=== PATIENT | female | born 1970 | race African-American/Black ===

== ENCOUNTER 2017-03-29 13:55 | Emergency (ER) | payer SELFPAY ==
[~2017-03-29] VITALS: Ht 156.2 cm; Wt 113.4 kg
--- NOTE | ~2017-03-29 | EKG ---
PATIENT: SOFYA ARAUJO UNIT #: [id number] Ventricular Rate: 75 BPM Atrial Rate: 75 BPM P-R Interval: 150 ms QRS Duration: 84 ms Q-T Interval: 382 ms QTC Calculation(Bezet): 426 ms P [place]: 47 degrees Calculated R [place]: 21 degrees Calculated T [place]: 20 degrees Diagnosis Line: Normal sinus rhythm Diagnosis Line: Normal ECG Diagnosis Line: No previous ECGs available Diagnosis Line: Confirmed by MOHIT RINCON MD ([id number]) on Diagnosis Line: 03/30/2017 12:32:33 AM INTERPRETING MD: MCKENZIE HIRSCH
--- NOTE | ~2017-03-29 | CR63 ---
[facility] A Service of [facility] RADIOLOGY TEXT RESULTS PATIENT: SOFYA ARAUJO LOCATION: [facility] : 68 UNIT #: [id number] AGE: [address]: Mili Santos SEX: F ORDER DR: [id number] [facility]. [place], [place] [address] [id number] MR#: [id number] Acc #: [id number] NAME: SOFYA ARAUJO : 1970 SEX: F STUDY DATE/TIME: 03/29/2017 15:48 UNIT: [facility] ROOM: STUDY DESCRIPTION: CR Chest 2 View Attending Physician: Mili Santos P.A.-C. Ordering Physician: Mili Santos P.A.-C. Primary Care Physician: Tosha Corley M.D. MEDICAL IMAGING REPORT This report is preliminary unless electronic signature is present EXAM PA and lateral chest DATE 03/29/2017 HISTORY Shortness breath with chronic cough for 2 weeks. Asthma. COMPARISON None FINDINGS PA and lateral examination of the chest upright shows a good expansion of the parenchyma with a normal distribution of the pulmonary vascularity. There is no indication of congestion, effusion, infiltrate, tumor, or nodular density. The pleural reflections and diaphragmatic contours are normal. The cardiac silhouette and mediastinal anatomy is within normal limits. IMPRESSION Normal chest. Dictated by... Izabel Santos M.D. THIS IS AN ELECTRONICALLY VERIFIED REPORT Izabel Santos M.D. at 03/31/2017 9:35 PM [facility] TD: 03/29/2017 18:17 JOB #: [id number] [facility] A Service [facility] RADIOLOGY TEXT RESULTS PATIENT: SOFYA ARAUJO LOCATION: [facility] : 68 UNIT #: [id number] AGE: [address]: Mili Santos SEX: F ORDER DR: MEDICAL IMAGING REPORT Page 1 of 1 COPY
[2017-03-29 15:07] LABS: URINE SOURCE CLEAN CATCH
[2017-03-29 15:13] LABS: URINE APPEARANCE CLEAR; URINE BILIRUBIN NEG (NEG); URINE BLOOD TRACE (NEG); URINE COLOR YELLOW; URINE GLUCOSE NEG (NEG); URINE KETONE NEG (NEG); URINE LEUKOCYTE ESTERASE 2+ (NEG); URINE NITRATE NEG (NEG); URINE PROTEIN NEG (NEG); URINE SPECIFIC GRAVITY 1.025 (1.003-1.035)
[2017-03-29 15:16] LABS: CULTURE INDICATED? YES; URINE BACTERIA AUWI 1+ (NEGATIVE); URINE SQUAMOUS EPITHELIAL CELL FEW /[HPF]; UWBCS1 AUWI 50-100 (0-5)
[2017-03-29 15:24] LABS: BASOPHIL% 0.6 % (0-2.5); EOSINOPHIL# 0.1 X10e3 (0-0.7); EOSINOPHIL% 0.7 % (0.0-7.0); HEMATOCRIT 36.3 % (35.0-45.0); HEMOGLOBIN 12.1 gm/dL (12.0-16.0); LYMPHOCYTE# 2.3 X10e3 (1.0-3.5); LYMPHOCYTE% 31.6 % (17.0-45.0); MEAN CELL VOLUME 93.6 FL (83-96); MEAN CORPUSCULAR HEMOGLOBIN 31.2 PG (28-34); MEAN CORPUSCULAR HGB CONC 33.3 g/dL (30-36); MONOCYTE# 0.7 X10e3 (0-1.0); MONOCYTE% 9.5 % (3.0-12.0); NEUTROPHIL# 4.2 X10e3 (1.5-7.1); NEUTROPHIL% 57.6 % (40-75); PLATELET COUNT 254 X10e3 (140-420); RED BLOOD COUNT 3.88 X10e (3.90-5.30); RED CELL DISTRIBUTION WIDTH 14.6 % (11.0-15.5); WHITE BLOOD COUNT 7.3 X10e3 (4.0-10.5)
[2017-03-29 15:28] LABS: DIFF IND NO
[2017-03-29 15:34] LABS: POC - CKMB <1.0 ng/mL (0.0-7.9); POC - TROPONIN <0.05 ng/mL (<=0.05)
[2017-03-29 16:38] LABS: BUN/CREATININE RATIO 16.66; CALCIUM SERUM 8.7 mg/dL (8.4-10.2); CREATININE SERUM 0.9 mg/dL (0.6-1.4); GLOM FILT RATE Estimated 88.3 mL/min (>60); POTASSIUM 4.2 mmol/L (3.5-5.1)
[2017-03-29 17:35] LABS: POC - CKMB 1.1 ng/mL (0.0-7.9); POC - TROPONIN <0.05 ng/mL (<=0.05)
== END 2017-03-29 18:40 | disposition home or self-care (01) ==
LOC: CED 13:55
PROVIDERS: Physician Assistant
DX: R06.02 Shortness of breath (principal); N39.0 Urinary tract infection, site not specified; R07.89 Other chest pain; J45.909 Unspecified asthma, uncomplicated; F17.210 Nicotine dependence, cigarettes, uncomplicated; Z98.890 Other specified postprocedural states
CPT/HCPCS: 36415; 71020; 80048; 81003; 82553; 83880; 84484; 85025; 85379; 87086; 93005; 94640; 96372; 96374; 99285; J0696; J2930